=== PATIENT | male | born 1940 | race Caucasian/White ===

== ENCOUNTER → 2021-01-12 | Outpatient (CLI) | payer MEDICARE, OTHER ==
--- NOTE | 2021-01-12 10:14 | REP ---
INDICATION: PAIN. COMPARISON: None. TECHNIQUE: AP and lateral views FINDINGS: There is no acute fracture or destructive osseous lesion. IMPRESSION: No acute osseous abnormality. <Electronically signed by Tyler Kim > 01/12/21 [id number]
--- NOTE | 2021-01-12 10:18 | REP ---
INDICATION: PAIN. COMPARISON: None. TECHNIQUE: AP and lateral views FINDINGS: There is no acute fracture or destructive osseous lesion. Degenerative changes are seen involving the hip and knee. IMPRESSION: No acute osseous abnormality. <Electronically signed by Tyler Kim > 01/12/21 [id number]
[2021-01-13 16:13] LABS: Lyme Disease IgG/IgM Antibodie <0.91 ISR (0.00-0.90); Lyme Disease IgM Ab Quantitati <0.80 index (0.00-0.79)
== END ==
LOC: M WUC 08:53
PROVIDERS: ATTEND Physician Assistant
DX: M79.661 Pain in right lower leg (principal)

== ENCOUNTER → 2021-02-01 | Outpatient (CLI) | payer MEDICARE, OTHER ==
--- NOTE | 2021-02-01 13:10 | REP ---
INDICATION: PAIN IN RT LOWER LEG. COMPARISON: None. TECHNIQUE: 3T multiplanar MRI imaging of the right femur was obtained using various sequences. FINDINGS: There is no hip joint or knee joint effusion. The femoral head is spherical in shape. There is mild rather symmetric appearing hip joint space narrowing. No abnormal signal is seen in the trochanteric tendono bursal region. There is no abnormal focal chondral or subchondral signal abnormality in the femoral head. There is a T2 hyper signal focus seen in the anterior subchondral acetabulum which measures 6 mm. The cortical and marrow signal seen throughout the femurs within normal limits. There is no abnormal periosteal signal or thickening. There is no evidence of a mass or mass effect. There is no abnormal intracompartmental or extra compartmental fluid. There is no prominent acetabular marginal osteophytosis. IMPRESSION: Hip degenerative changes as described above. 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 <Electronically signed by Tyler Kim > 02/01/21 [id number]
== END ==
LOC: M RAD 08:14
PROVIDERS: ATTEND Orthopaedic Surgery
DX: M79.661 Pain in right lower leg (principal); M24.159 Other articular cartilage disorders, unspecified hip